=== PATIENT | male | born 1965 ===

== ENCOUNTER 2017-06-26 09:30 | Observation (INO) | payer MEDICAID, OTHER ==
[2017-06-26] MEDS ORDERED: Aspirin 325 mg EC Tablets PO STA (10:09)
[2017-06-26] MEDS ORDERED: Albuterol 0.083% Inhal Sol (2.5 mg/3 mL) UD INH STA (10:10)
--- NOTE | 2017-06-26 10:19 | C.PDOC ---
History Of Present Illness <Lauren Ronquilloortegaedith E - Last Filed: 06/26/17 12:28> <Todd Bazan M - Last Filed: 06/26/17 18:01> Patient is a 51 year old male with past medical history of hypercholesterolemia, who present to the ED with complaints of shortness of breath that has been on going for 8 days. Patient reports that he did not see a physician since the onset of his shortness of breath because he works in [place] and has not the opportunity to visit the hospital or clinic in his hometown. Patient reports associated symptoms of chest tightness with inspiration, dizziness when he changes position from full body flexion to a standing position. Patient denies nausea, vomiting, diaphoresis. ([place]thelstane,Barney Collins) History Per: Patient History/Exam Limitations: no limitations Onset/Duration Of Symptoms: Days (8), Gradual, Persistent Current Symptoms Are (Timing): Still Present Severity: Moderate Pain Scale Rating Of: 4 Location Of Discomfort (Image): 1 - Bilateral upper chest wall Location: Bilateral upper chest wall Quality: tightness Reports Recent Trauma: No Recent travel outside of the [place]: No Additional History Per: Patient <Barney Ronquillo - Last Filed: 06/26/17 12:28> <Todd Bazan M - Last Filed: 06/26/17 18:01> Time Seen by Provider: 06/26/17 09:52 Chief Complaint (Nursing): Shortness Of Breath Past Medical History - Medical History PMH: Hypercholesterolemia Other Surgeries: Colonoscopy: Polyps removal Family History: States: No Known Family Hx - Social History Hx Tobacco Use: No Hx Alcohol Use: Yes (Occasionally, Socially ) Hx Substance Use: No - Immunization History Hx Tetanus Toxoid Vaccination: No Hx Influenza Vaccination: No Hx Pneumococcal Vaccination: No <Barney Ronquillo - Last Filed: 06/26/17 12:28> Vital Signs: Last Vital Signs Temp 97.6 F 06/26/17 15:40 Pulse 64 06/26/17 15:40 Resp 20 06/26/17 15:40 BP 112/72 06/26/17 15:40 Pulse Ox 99 06/26/17 16:33 Review Of Systems Constitutional: Negative for: Fever, Chills, Sweats, Weakness Eyes: Negative for: Pain, Vision Change Cardiovascular: Positive for: Chest Pain (Chest tightness ), Light Headedness ( Lightheadedness with positional changes; full body flexion to standing position ). Negative for: Palpitations, Edema Respiratory: Positive for: Shortness of Breath, SOB with Excertion. Negative for: Cough, Pleuritic Pain, Sputum, Wheezing Gastrointestinal: Negative for: Nausea, Vomiting, Abdominal Pain Musculoskeletal: Positive for: Neck Pain Neurological: Negative for: Weakness, Numbness, Confusion <Barney Ronquillo - Last Filed: 06/26/17 12:28> Physical Exam - Physical Exam Appears: Well, No Acute Distress Skin: Normal Color Head: Atraumatic, Normacephalic Eye(s): bilateral: Normal Inspection, EOMI Teeth: Normal Dentition Chest: Symmetrical, No Tenderness, No Ecchymosis Cardiovascular: Rhythm Regular, No Friction Rub, No Murmur, No JVD Respiratory: Normal Breath Sounds, No Decreased Breath Sounds, No Accessory Muscle Use, No Rales, No Rhonchi, No Wheezing Gastrointestinal/Abdominal: Normal Exam, Bowel Sounds, No Soft, No Tenderness, No Mass, No Distention, No Guarding, No Rebound, No Ascites Extremity: Normal ROM, No Tenderness, No Pedal Edema, No Calf Tenderness Neurological/Psych: Oriented x3, Normal Speech <Barney Ronquillo E - Last Filed: 06/26/17 12:28> ED Course And Treatment - Laboratory Results Result Diagrams: 06/26/17 10:19 06/26/17 10:19 ECG: Viewed By De ECG Rhythm: Sinus Rhythm ECG Interpretation: Normal, No Acute Changes Interpretation Of ECG: Normal sinus rhythm at 69 BPM, No ST/T changes Rate From EC O2 Sat by Pulse Oximetry: 99 Progress Note: D-Dimer<200 <Barney Ronquillo - Last Filed: 06/26/17 12:28> - Laboratory Results Result Diagrams: 06/26/17 10:19 06/26/17 10:19 <Todd Bazan M - Last Filed: 06/26/17 18:01> Medical Decision Making <Barney Ronquillo - Last Filed: 06/26/17 12:28> <Todd Bazan - Last Filed: 06/26/17 18:01> Medical Decision Making: patient with chest pain, sob, patient admitted to tele observation. Hospitalist notified. (Todd Bazan) Disposition Comment: Admit for observation <Barney Ronquillo - Last Filed: 06/26/17 12:28> Discussed With : Peter Pepper Counseled Patient/Family Regarding: Studies Performed, Diagnosis - Disposition Disposition Time: 11:42 <Todd Bazan - Last Filed: 06/26/17 18:01> - Disposition Disposition: HOSPITALIZED Condition: FAIR - Clinical Impression Clinical Impression: Chest pain
[2017-06-26 10:25] LABS: BASO % 0.4 % (0.0-2.0); EOS # 0.2 K/uL (0.0-0.7); EOS % 2.1 % (0.0-4.0); HEMOGLOBIN 13.9 g/dL (12.0-18.0); LYMPH # 2.6 K/uL (1.0-4.3); LYMPH % 35.3 % (20.0-40.0); MEAN CELL VOLUME 85.4 fL (80.0-94.0); MEAN CORPUSCULAR HEMOGLOBIN 28.6 pg (27.0-31.0); MEAN CORPUSCULAR HGB CONC 33.4 g/dL (33.0-37.0); MONO # 0.5 K/uL (0.0-0.8); MONO % 6.5 % (0.0-10.0); NEUT # 4.1 K/uL (1.8-7.0); NEUT % 55.7 % (50.0-75.0); RBC 4.86 Mil/uL (4.40-5.90); RED CELL DISTRIBUTION WIDTH 14.3 % (11.5-14.5); WHITE BLOOD COUNT 7.4 K/uL (4.8-10.8)
[2017-06-26] MEDS ORDERED: Albuterol 0.083% Inhal Sol (2.5 mg/3 mL) UD ONE (10:28)
--- NOTE | 2017-06-26 10:41 | RAD ---
HISTORY: chest pain COMPARISON: None available. TECHNIQUE: Chest PA and lateral FINDINGS: Examination limited by habitus. LUNGS: No focal consolidation. Please note that chest x-ray has limited sensitivity for the detection of pulmonary masses. PLEURA: No significant pleural effusion identified. No definite pneumothorax . CARDIOVASCULAR: Heart size appears within normal limits. OSSEOUS STRUCTURES: No acute osseous abnormality identified. VISUALIZED UPPER ABDOMEN: Unremarkable. OTHER FINDINGS: None. IMPRESSION: No focal consolidation identified.
[2017-06-26 10:59] LABS: ALB/GLOB RATIO 1.2 (1.0-2.1); ALBUMIN 4.3 g/dL (3.5-5.0); ALT/SGPT 42 U/L (21-72); AST/SGOT 30 U/L (17-59); BLOOD UREA NITROGEN 15 mg/dL (9-20); CALCIUM 8.7 mg/dl (8.6-10.4); GFR AFRICAN-AMERICAN > 60; GFR NON-AFRICAN AMERICAN > 60
[2017-06-26 11:06] LABS: B-TYPE NATRIURETIC PEPTIDE 31.8 pg/mL (0-900)
--- NOTE | 2017-06-26 13:50 | CP.PCM.HP ---
<Soledad Brand - Last Filed: 06/26/17 17:37> History of Present Illness - History of Present Illness History of Present Illness: HPI 51 year old male with a PMHx of hypercholesterolemia presented to the ED this morning with complaints of shortness of breath. The patient states the discomfort began approximately 8 days ago while he was out of state working, and has since progressed; he decided to come to the ED for evaluation upon his return home. Patient describes a sensation of bilateral tightness around his chest and back, that restricts his inspiratory volume. Patient had a similar episode 7 years ago for which his PMD prescribed a nebulizer treatment and an unknown medication, with full resolution of symptoms. Patient also describes a history of anginal-like chest pain, although not present at this visit. Patient states symptoms are not associated with activity and is non positional. Patient denies exertion dyspnea, orthopnea, cough, phlegm, chest pain, palpitations, fevers, dizziness, headache, abdominal pain, sick contacts. Patient said he felt better after breathing treatment in ED PMH: hypercholesterolemia, no medication, colonoscopy 8 years ago with polypectomy and normal EGD to evaluate pain in abdomen Surgical History: none Family History: mother had TN prior to his and of "water in lungs" Social history: no smoking, no PMD: none, last one was 7-8 years ago Present on Admission - Present on Admission Any Indicators Present on Admission: No History of DVT/PE: No History of Uncontrolled Diabetes: No Urinary Catheter: No Decubitus Ulcer Present: No Past Patient History - Past Social History Smoking Status: Never Smoked - CARDIAC Hx Hypercholesterolemia: Yes - GASTROINTESTINAL Other/Comment: PER PATIENT, "A PROBLEM WITH MY COLON" - PSYCHIATRIC Hx Substance Use: No - SURGICAL HISTORY Hx Surgeries: Yes Other/Comment: COLONOSCOPY 8 YEARS AGO PER PATIENT Meds Allergies/Adverse Reactions: Allergies Allergy/AdvReac Type Severity Reaction Status Date / Time No Known Allergies Allergy Verified 06/26/17 09:50 Physical Exam - Head Exam Head Exam: ATRAUMATIC, NORMAL INSPECTION, NORMOCEPHALIC - Eye Exam Eye Exam: EOMI, Normal appearance - ENT Exam ENT Exam: Mucous Membranes Moist - Neck Exam Neck exam: Positive for: Full Rom. Negative for: Thyromegaly - Respiratory Exam Respiratory Exam: Clear to Auscultation Bilateral, NORMAL BREATHING PATTERN. absent: Accessory Muscle Use, Rales, Rhonchi - Cardiovascular Exam Cardiovascular Exam: REGULAR RHYTHM, +S1, +S2. absent: Bradycardia, Tachycardia - GI/Abdominal Exam GI & Abdominal Exam: Normal Bowel Sounds, Soft. absent: Hyperactive Bowel Sounds - Extremities Exam Extremities exam: Positive for: full ROM. Negative for: pedal edema, tenderness - Back Exam Back exam: FULL ROM, NORMAL INSPECTION - Neurological Exam Neurological exam: CN II-XII Intact, Normal Gait, Oriented x3 - Psychiatric Exam Psychiatric exam: Normal Affect, Normal Mood - Skin Skin Exam: Dry, Intact, Normal Color, Warm Results - Vital Signs Recent Vital Signs: Last Vital Signs Temp 97.9 F 06/26/17 12:10 Pulse 68 06/26/17 12:10 Resp 18 06/26/17 12:12 BP 109/76 06/26/17 12:10 Pulse Ox 99 06/26/17 12:29 - Labs Result Diagrams: 06/26/17 10:19 06/26/17 10:19 Labs: Laboratory Results - last 24 hr 06/26/17 06/26/17 06/26/17 10:19 10:19 10:19 WBC 7.4 RBC 4.86 Hgb 13.9 Hct 41.5 MCV 85.4 MCH 28.6 MCHC 33.4 RDW 14.3 Plt Count 184 MPV 10.0 Neut % (Auto) 55.7 Lymph % (Auto) 35.3 [place] % (Auto) 6.5 Eos % (Auto) 2.1 Baso % (Auto) 0.4 Neut # (Auto) 4.1 Lymph # (Auto) 2.6 [place] # (Auto) 0.5 Eos # (Auto) 0.2 Baso # (Auto) 0.0 D-Dimer, Quantitative < 200 Sodium 141 Potassium 3.9 Chloride 106 Carbon Dioxide 24 Anion Gap 15 BUN 15 Creatinine 0.8 Est GFR ( Amer) > 60 Est GFR (Non-Af Amer) > 60 Random Glucose 93 Calcium 8.7 Total Bilirubin 0.8 AST 30 ALT 42 Alkaline Phosphatase 65 Troponin I < 0.0120 NT-Pro-B Natriuret Pep 31.8 Total Protein 7.8 Albumin 4.3 Globulin 3.5 Albumin/Globulin Ratio 1.2 Assessment & Plan - Assessment and Plan (Free Text) Assessment: ACS r/o IFEOMA troponin negative x 1 Cardio Consult: Dr. Genesis Espino SOB/Dysnpea duoneb q6h PRN for shortness of breath Diet: Heart Healthy Diet Protonix SCDs - Date & Time Date: 06/26/17 Time: 14:01 <Peter Pepper - Last Filed: 06/27/17 15:48> Results - Vital Signs Recent Vital Signs: Last Vital Signs Temp 97.8 F 06/27/17 07:15 Pulse 63 06/27/17 07:15 Resp 20 06/27/17 07:15 BP 114/75 06/27/17 07:15 Pulse Ox 98 06/27/17 12:00 - Labs Result Diagrams: 06/27/17 06:09 06/27/17 06:09 Labs: Laboratory Results - last 24 hr 06/26/17 06/26/17 06/27/17 17:21 22:07 06:09 WBC RBC Hgb Hct MCV MCH MCHC RDW Plt Count MPV Neut % (Auto) Lymph % (Auto) [place] % (Auto) Eos % (Auto) Baso % (Auto) Neut # (Auto) Lymph # (Auto) [place] # (Auto) Eos # (Auto) Baso # (Auto) Sodium 143 Potassium 5.0 Chloride 106 Carbon Dioxide 26 Anion Gap 16 BUN 18 Creatinine 1.0 Est GFR ( Amer) > 60 Est GFR (Non-Af Amer) > 60 Random Glucose 95 Calcium 9.1 Phosphorus 4.1 Magnesium 2.3 Total Bilirubin 0.8 AST 27 ALT 42 Alkaline Phosphatase 53 Total Creatine Kinase 128 92 101 CK-MB (Mass) 0.81 0.63 0.62 Troponin I < 0.0120 < 0.0120 < 0.0120 Total Protein 7.2 Albumin 3.9 Globulin 3.3 Albumin/Globulin Ratio 1.2 Triglycerides 200 H Cholesterol 197 LDL Cholesterol Direct 123 HDL Cholesterol 35 06/27/17 06:09 WBC 8.9 RBC 4.80 Hgb 13.8 Hct 41.2 MCV 85.9 MCH 28.8 MCHC 33.6 RDW 14.6 H Plt Count 200 MPV 9.8 Neut % (Auto) 59.3 Lymph % (Auto) 31.7 [place] % (Auto) 6.4 Eos % (Auto) 2.3 Baso % (Auto) 0.3 Neut # (Auto) 5.3 Lymph # (Auto) 2.8 [place] # (Auto) 0.6 Eos # (Auto) 0.2 Baso # (Auto) 0.0 Sodium Potassium Chloride Carbon Dioxide Anion Gap BUN Creatinine Est GFR ( Amer) Est GFR (Non-Af Amer) Random Glucose Calcium Phosphorus Magnesium Total Bilirubin AST ALT Alkaline Phosphatase Total Creatine Kinase CK-MB (Mass) Troponin I Total Protein Albumin Globulin Albumin/Globulin Ratio Triglycerides Cholesterol LDL Cholesterol Direct HDL Cholesterol Attending/Attestation - Attestation I have personally seen and examined this patient.: Yes I have fully participated in the care of the patient.: Yes I have reviewed all pertinent clinical information: Yes Notes (Text): Patient was seen and examined history taken from the pt discussed with the resident I agree with the residnet's assessment and the plan 1.Chest pain-R/O ACS 2.Dyspnea ?-no wheezing/no signs of infection admit for observation for r/o ACS
[2017-06-26 15:41] VITALS: RESP 20
[2017-06-26 17:52] LABS: CK-MB 0.81 ng/mL (0.0-3.38)
[2017-06-26 22:34] LABS: CK-MB 0.63 ng/mL (0.0-3.38)
[2017-06-27 06:17] LABS: BASO % 0.3 % (0.0-2.0); EOS # 0.2 K/uL (0.0-0.7); EOS % 2.3 % (0.0-4.0); HEMOGLOBIN 13.8 g/dL (12.0-18.0); LYMPH # 2.8 K/uL (1.0-4.3); LYMPH % 31.7 % (20.0-40.0); MEAN CELL VOLUME 85.9 fL (80.0-94.0); MEAN CORPUSCULAR HEMOGLOBIN 28.8 pg (27.0-31.0); MEAN CORPUSCULAR HGB CONC 33.6 g/dL (33.0-37.0); MEAN PLATELET VOLUME 9.8 fL (7.2-11.7); MONO # 0.6 K/uL (0.0-0.8); MONO % 6.4 % (0.0-10.0); NEUT # 5.3 K/uL (1.8-7.0); NEUT % 59.3 % (50.0-75.0); NRBC % 0.1 % (0.0-2.0); RBC 4.8 Mil/uL (4.40-5.90); RED CELL DISTRIBUTION WIDTH 14.6 % (11.5-14.5); WHITE BLOOD COUNT 8.9 K/uL (4.8-10.8)
[2017-06-27 06:39] LABS: ALB/GLOB RATIO 1.2 (1.0-2.1); ALBUMIN 3.9 g/dL (3.5-5.0); ALT/SGPT 42 U/L (21-72); AST/SGOT 27 U/L (17-59); BLOOD UREA NITROGEN 18 mg/dL (9-20); CALCIUM 9.1 mg/dl (8.6-10.4); GFR AFRICAN-AMERICAN > 60; GFR NON-AFRICAN AMERICAN > 60; HDL CHOLESTEROL 35 mg/dL (30-70)
[2017-06-27 06:48] LABS: CK-MB 0.62 ng/mL (0.0-3.38); LDL CHOLESTEROL 123 mg/dL (0-129)
[2017-06-27] MEDS ORDERED: Albuterol-Ipratrop 3 mg / 0.5 (3 ml) UD INH PRN (07:09)
[2017-06-27 07:55] VITALS: BP 114/75; PULSE 63; TEMP 97.8
[2017-06-27] MEDS: Albuterol-Ipratrop 3 mg / 0.5 (3 ml) UD INH SCH ×2 (08:00→13:10)
--- NOTE | 2017-06-27 11:01 | CP.PCM.DIS ---
<Soledad Brand - Last Filed: 06/27/17 10:54> Provider - Provider Date of Admission: 06/26/17 11:40 Attending physician: Peter Pepper MD Consults: Dr. Espino Time Spent in preparation of Discharge (in minutes): 35 Hospital Course - Lab Results Lab Results: Most Recent Lab Values WBC 8.9 K/uL (4.8-10.8) 06/27/17 06:09 RBC 4.80 Mil/uL (4.40-5.90) 06/27/17 06:09 Hgb 13.8 g/dL (12.0-18.0) 06/27/17 06:09 Hct 41.2 % (35.0-51.0) 06/27/17 06:09 MCV 85.9 fL (80.0-94.0) 06/27/17 06:09 MCH 28.8 pg (27.0-31.0) 06/27/17 06:09 MCHC 33.6 g/dL (33.0-37.0) 06/27/17 06:09 RDW 14.6 % (11.5-14.5) H 06/27/17 06:09 Plt Count 200 K/uL (130-400) 06/27/17 06:09 MPV 9.8 fL (7.2-11.7) 06/27/17 06:09 Neut % (Auto) 59.3 % (50.0-75.0) 06/27/17 06:09 Lymph % (Auto) 31.7 % (20.0-40.0) 06/27/17 06:09 [place] % (Auto) 6.4 % (0.0-10.0) 06/27/17 06:09 Eos % (Auto) 2.3 % (0.0-4.0) 06/27/17 06:09 Baso % (Auto) 0.3 % (0.0-2.0) 06/27/17 06:09 Neut # (Auto) 5.3 K/uL (1.8-7.0) 06/27/17 06:09 Lymph # (Auto) 2.8 K/uL (1.0-4.3) 06/27/17 06:09 [place] # (Auto) 0.6 K/uL (0.0-0.8) 06/27/17 06:09 Eos # (Auto) 0.2 K/uL (0.0-0.7) 06/27/17 06:09 Baso # (Auto) 0.0 K/uL (0.0-0.2) 06/27/17 06:09 D-Dimer, Quantitative < 200 ng/mlDDU (0-243) 06/26/17 10:19 Sodium 143 mmol/L (132-148) 06/27/17 06:09 Potassium 5.0 mmol/L (3.6-5.2) 06/27/17 06:09 Chloride 106 mmol/L (98-107) 06/27/17 06:09 Carbon Dioxide 26 mmol/L (22-30) 06/27/17 06:09 Anion Gap 16 (10-20) 06/27/17 06:09 BUN 18 mg/dL (9-20) 06/27/17 06:09 Creatinine 1.0 mg/dL (0.8-1.5) 06/27/17 06:09 Est GFR ( Amer) > 60 06/27/17 06:09 Est GFR (Non-Af Amer) > 60 06/27/17 06:09 Random Glucose 95 mg/dL (75-110) 06/27/17 06:09 Calcium 9.1 mg/dl (8.6-10.4) 06/27/17 06:09 Phosphorus 4.1 mg/dL (2.5-4.5) 06/27/17 06:09 Magnesium 2.3 mg/dL (1.6-2.3) 06/27/17 06:09 Total Bilirubin 0.8 mg/dL (0.2-1.3) 06/27/17 06:09 AST 27 U/L (17-59) 06/27/17 06:09 ALT 42 U/L (21-72) 06/27/17 06:09 Alkaline Phosphatase 53 U/L (38-126) 06/27/17 06:09 Total Creatine Kinase 101 U/L (55-170) 06/27/17 06:09 CK-MB (Mass) 0.62 ng/mL (0.0-3.38) 06/27/17 06:09 Troponin I < 0.0120 ng/mL (0.00-0.120) 06/27/17 06:09 NT-Pro-B Natriuret Pep 31.8 pg/mL (0-900) 06/26/17 10:19 Total Protein 7.2 g/dL (6.3-8.3) 06/27/17 06:09 Albumin 3.9 g/dL (3.5-5.0) 06/27/17 06:09 Globulin 3.3 gm/dL (2.2-3.9) 06/27/17 06:09 Albumin/Globulin Ratio 1.2 (1.0-2.1) 06/27/17 06:09 Triglycerides 200 mg/dL (0-149) H 06/27/17 06:09 Cholesterol 197 mg/dL (0-199) 06/27/17 06:09 LDL Cholesterol Direct 123 mg/dL (0-129) 06/27/17 06:09 HDL Cholesterol 35 mg/dL (30-70) 06/27/17 06:09 - Hospital Course Hospital Course: 51 year old male with a PMHx of hypercholesterolemia presented to the ED this morning with complaints of shortness of breath. The patient states the discomfort began approximately 8 days ago while he was out of state working, and has since progressed; he decided to come to the ED for evaluation upon his return home. Patient describes a sensation of bilateral tightness around his chest and back, that restricts his inspiratory volume. Patient had a similar episode 7 years ago for which his PMD prescribed a nebulizer treatment and an unknown medication, with full resolution of symptoms. Patient also describes a history of anginal-like chest pain, although not present at this visit. Patient states symptoms are not associated with activity and is non positional. Patient denies exertion dyspnea, orthopnea, cough, phlegm, chest pain, palpitations, fevers, dizziness, headache, abdominal pain, sick contacts. Patient had troponins trended which were negative x 3. Initial EKG had no elevations. PAtient states he felt better after breathing treatment. Patient was discharged with instructions to follow up with primary care doctor and get a referral to a ratings analyst for further evaluation of lung function. - Date & Time of H&P Date of H&P: 06/27/17 Time of H&P: 11:01 Discharge Exam - Head Exam Head Exam: ATRAUMATIC, NORMAL INSPECTION, NORMOCEPHALIC - Eye Exam Eye Exam: EOMI, Normal appearance Pupil Exam: NORMAL ACCOMODATION, PERRL - ENT Exam ENT Exam: Normal Exam. absent: Mucous Membranes Dry, Normal Oropharynx - Neck Exam Neck exam: Full Rom - Respiratory Exam Respiratory Exam: NORMAL BREATHING PATTERN - Cardiovascular Exam Cardiovascular Exam: REGULAR RHYTHM, +S1, +S2. absent: Bradycardia, Tachycardia - GI/Abdominal Exam GI & Abdominal Exam: Normal Bowel Sounds, Soft. absent: Tenderness - Extremities Exam Extremities exam: full ROM - Back Exam Back exam: absent: FULL ROM - Neurological Exam Neurological exam: Alert, CN II-XII Intact, Normal Gait, Oriented x3 - Psychiatric Exam Psychiatric exam: Flat Affect, Normal Affect, Normal Mood - Skin Skin Exam: Dry, Intact, Normal Color, Warm Discharge Plan - Follow Up Plan Condition: FAIR Disposition: HOME/ ROUTINE Instructions: Chest Pain (DC) Additional Instructions: follow up with PMD in one week, obtain referral to ratings analyst for PFT and evaluation of lung function <Peter Pepper - Last Filed: 06/27/17 15:45> Provider - Provider Date of Admission: 06/26/17 11:40 Attending physician: Peter Pepper MD Hospital Course - Lab Results Lab Results: Most Recent Lab Values WBC 8.9 K/uL (4.8-10.8) 06/27/17 06:09 RBC 4.80 Mil/uL (4.40-5.90) 06/27/17 06:09 Hgb 13.8 g/dL (12.0-18.0) 06/27/17 06:09 Hct 41.2 % (35.0-51.0) 06/27/17 06:09 MCV 85.9 fL (80.0-94.0) 06/27/17 06:09 MCH 28.8 pg (27.0-31.0) 06/27/17 06:09 MCHC 33.6 g/dL (33.0-37.0) 06/27/17 06:09 RDW 14.6 % (11.5-14.5) H 06/27/17 06:09 Plt Count 200 K/uL (130-400) 06/27/17 06:09 MPV 9.8 fL (7.2-11.7) 06/27/17 06:09 Neut % (Auto) 59.3 % (50.0-75.0) 06/27/17 06:09 Lymph % (Auto) 31.7 % (20.0-40.0) 06/27/17 06:09 [place] % (Auto) 6.4 % (0.0-10.0) 06/27/17 06:09 Eos % (Auto) 2.3 % (0.0-4.0) 06/27/17 06:09 Baso % (Auto) 0.3 % (0.0-2.0) 06/27/17 06:09 Neut # (Auto) 5.3 K/uL (1.8-7.0) 06/27/17 06:09 Lymph # (Auto) 2.8 K/uL (1.0-4.3) 06/27/17 06:09 [place] # (Auto) 0.6 K/uL (0.0-0.8) 06/27/17 06:09 Eos # (Auto) 0.2 K/uL (0.0-0.7) 06/27/17 06:09 Baso # (Auto) 0.0 K/uL (0.0-0.2) 06/27/17 06:09 D-Dimer, Quantitative < 200 ng/mlDDU (0-243) 06/26/17 10:19 Sodium 143 mmol/L (132-148) 06/27/17 06:09 Potassium 5.0 mmol/L (3.6-5.2) 06/27/17 06:09 Chloride 106 mmol/L (98-107) 06/27/17 06:09 Carbon Dioxide 26 mmol/L (22-30) 06/27/17 06:09 Anion Gap 16 (10-20) 06/27/17 06:09 BUN 18 mg/dL (9-20) 06/27/17 06:09 Creatinine 1.0 mg/dL (0.8-1.5) 06/27/17 06:09 Est GFR ( Amer) > 60 06/27/17 06:09 Est GFR (Non-Af Amer) > 60 06/27/17 06:09 Random Glucose 95 mg/dL (75-110) 06/27/17 06:09 Calcium 9.1 mg/dl (8.6-10.4) 06/27/17 06:09 Phosphorus 4.1 mg/dL (2.5-4.5) 06/27/17 06:09 Magnesium 2.3 mg/dL (1.6-2.3) 06/27/17 06:09 Total Bilirubin 0.8 mg/dL (0.2-1.3) 06/27/17 06:09 AST 27 U/L (17-59) 06/27/17 06:09 ALT 42 U/L (21-72) 06/27/17 06:09 Alkaline Phosphatase 53 U/L (38-126) 06/27/17 06:09 Total Creatine Kinase 101 U/L (55-170) 06/27/17 06:09 CK-MB (Mass) 0.62 ng/mL (0.0-3.38) 06/27/17 06:09 Troponin I < 0.0120 ng/mL (0.00-0.120) 06/27/17 06:09 NT-Pro-B Natriuret Pep 31.8 pg/mL (0-900) 06/26/17 10:19 Total Protein 7.2 g/dL (6.3-8.3) 06/27/17 06:09 Albumin 3.9 g/dL (3.5-5.0) 06/27/17 06:09 Globulin 3.3 gm/dL (2.2-3.9) 06/27/17 06:09 Albumin/Globulin Ratio 1.2 (1.0-2.1) 06/27/17 06:09 Triglycerides 200 mg/dL (0-149) H 06/27/17 06:09 Cholesterol 197 mg/dL (0-199) 06/27/17 06:09 LDL Cholesterol Direct 123 mg/dL (0-129) 06/27/17 06:09 HDL Cholesterol 35 mg/dL (30-70) 06/27/17 06:09 Attending/Attestation - Attestation I have personally seen and examined this patient.: Yes I have fully participated in the care of the patient.: Yes I have reviewed all pertinent clinical information, including history, physical exam and plan: Yes Notes (Text): Patient was seen and examined Not in pain.Complaining of exposure to smoke and dust and having chest discomfort/feels like to difficult to breath deep cardiac enzymes and EKG normal.Lipid panel ok Discussed with patient about primary care follow up and possible PFT. Return if develop chest pain spoke to Dr Espino before discharge the pt I agree with the resident's documentation
--- NOTE | 2017-06-27 12:10 | CARD ---
APPROVED REPORT EKG Measurement Heart [id number] <Conclusion> Normal sinus rhythm Normal ECG
--- NOTE | 2017-06-27 12:23 | CP.PCM.PN ---
Subjective - Date & Time of Evaluation Date of Evaluation: 06/27/17 Time of Evaluation: 12:21 - Subjective Subjective: CARDIAC SABLE. NO CHEST PAIN. VS WNL. CHART REVIEWED. Objective - Vital Signs/Intake and Output Vital Signs (last 24 hours): Temp Pulse Resp BP Pulse Ox 97.8 F 63 20 114/75 97 06/27/17 07:15 06/27/17 07:15 06/27/17 07:15 06/27/17 07:15 06/27/17 07:15 Intake and Output: 06/27/17 06/27/17 06:59 18:59 Intake Total 500 Balance 500 - Medications Medications: Current Medications Albuterol/Ipratropium (Duoneb 3 Mg/0.5 Mg (3 Ml) Ud) 3 ml INH RQ6 JOSUÉ Last Admin: 06/27/17 08:00 Dose: Not Given Albuterol/Ipratropium (Duoneb 3 Mg/0.5 Mg (3 Ml) Ud) 3 ml INH RQ2 PRN PRN Reason: Shortness of Breath Morphine Sulfate (Morphine) 1 mg IVP Q4H PRN PRN Reason: Pain, moderate (4-7) Pneumococcal Polyvalent Vaccine (Pneumovax 23 Vaccine) 0.5 ml IM .ONCE ONE Stop: 06/28/17 10:01 Rosuvastatin Calcium (Crestor) 20 mg PO [facility] Last Admin: 06/26/17 21:34 Dose: 20 mg - Labs Labs: 06/27/17 06:09 06/27/17 06:09 - Constitutional Appears: No Acute Distress - Eye Exam Eye Exam: EOMI, Normal appearance, PERRL Pupil Exam: NORMAL ACCOMODATION, PERRL - ENT Exam ENT Exam: Mucous Membranes Moist, Normal Exam - Neck Exam Neck Exam: Full ROM, Normal Inspection. absent: Lymphadenopathy - Respiratory Exam Respiratory Exam: Clear to Ausculation Bilateral, NORMAL BREATHING PATTERN - Cardiovascular Exam Cardiovascular Exam: REGULAR RHYTHM, +S1, +S2. absent: Murmur - GI/Abdominal Exam GI & Abdominal Exam: Soft, Normal Bowel Sounds. absent: Tenderness - Extremities Exam Extremities Exam: Full ROM, Normal Capillary Refill, Normal Inspection. absent : Joint Swelling, Pedal Edema - Back Exam Back Exam: NORMAL INSPECTION - Neurological Exam Neurological Exam: Alert, Awake, CN II-XII Intact, Normal Gait, Oriented x3 - Psychiatric Exam Psychiatric exam: Normal Affect, Normal Mood Assessment and Plan - Assessment and Plan (Free Text) Assessment: CARDIAC STABLE. Plan: OK TO DISCHARGE HOME.
[2017-06-27 12:56] VITALS: O2SAT 98
[2017-06-27] MEDS ORDERED: Pneumococcal 23-Valent Vaccine IM ONE (13:36)
[2017-06-27] MEDS ORDERED: Influenza Vaccine 60 mcg/0.5 mL SYR (4YR UP) IM ONE (13:37)
[2017-06-28] MEDS ORDERED: Pneumococcal 23-Valent Vaccine IM ONE (10:00)
[2017-06-28] MEDS ORDERED: Influenza Vaccine 60 mcg/0.5 mL SYR (4YR UP) IM ONE (10:00)
[2017-06-29] MEDS ORDERED: Pneumococcal 23-Valent Vaccine IM ONE (10:00)
[2017-06-29] MEDS ORDERED: Influenza Vaccine 60 mcg/0.5 mL SYR (4YR UP) IM ONE (10:00)
== END 2017-06-27 15:06 | disposition home or self-care (01) ==
LOC: C.ER 09:30 → C.9E 11:40 → C.5S 12:08
PROVIDERS: ADMIT Internal Medicine; ATTEND Internal Medicine
DX: R07.89 Other chest pain (principal); E78.00 Pure hypercholesterolemia, unspecified
CPT/HCPCS: 36415; 71046; 80053; 80061; 83735; 83880; 84100; 84484; 85025; 85378; 90674; 90732; 93005; 94640; 96374; 99285; C9113; G0008; G0009; G0378